=== PATIENT | male | born 1965 | race Caucasian/White ===

== ENCOUNTER 2018-02-11 08:40 | Inpatient (IN) | payer OTHER ==
[~2018-02-11 08:40] MED LIST: FAMOTIDINE 20 MG/NACL 50 ML IV ONE; MIDAZOLAM 2 MG/2 ML VIAL IVP ONE; MIDAZOLAM 2 MG/2 ML VIAL ONE; POVIDONE-IODINE 20 ML in SODIUM CL IRRIG SOLUTION 500 ML IRR ONE; PROPOFOL/EMULSION 500 MG/50 ML BOTTLE IV ONE; ROPIVACAINE 0.2% 80 MG, EPINEPHrine 0.2 MG, KETOROLAC TROMETHAMINE 30 MG in SYRINGE 0 ML IU ONE; TRANEXAMIC ACID 1,000 MG in NS 100 ML IV ONE; fentaNYL 100 MCG/2 ML INJ ONE
[2018-02-11] MEDS ORDERED: ACETAMINOPHEN 325 MG TAB PO ONE (08:57)
[2018-02-11] MEDS ORDERED: GABAPENTIN 300 MG CAP PO ONE (08:57)
[2018-02-11] MEDS ORDERED: ceFAZolin 2 GM/DEXTROSE 100 ML IV ONE (08:57)
[2018-02-11] MEDS ORDERED: DEXAMETHASONE 4 MG/ML VIAL IVP ONE (08:57)
[2018-02-11] MEDS ORDERED: ONDANSETRON 4 MG/2 ML VIAL IVP ONE (08:57)
[2018-02-11] MEDS ORDERED: FAMOTIDINE 20 MG TAB PO ONE (08:57)
[2018-02-11] MEDS ORDERED: LR 1,000 ML IV ONE (08:58)
[2018-02-11] MEDS ORDERED: ceFAZolin 1 GM/5 ML SYR ONE (09:32)
[2018-02-11] MEDS ORDERED: MIDAZOLAM 2 MG/2 ML VIAL ONE ×2 (10:21→12:09)
[2018-02-11 10:39] LABS: PLATELET COUNT 227 10^3/uL (150-400)
--- NOTE | 2018-02-11 11:47 | PDHPUP ---
History & Physical Update H&P update statement: This history and physical update is based on an assessment of the patient which was completed after admission or registration (within 24 hours), but prior to the surgery/procedure. H&P update: H&P reviewed & patient examined
[2018-02-11] MEDS ORDERED: LABETALOL HCL 5 MG/ML 20 ML MDV IVP PRN (13:27)
[2018-02-11] MEDS ORDERED: fentaNYL 100 MCG/2 ML INJ IVP PRN (13:27)
[2018-02-11] MEDS ORDERED: PROMETHAZINE HCL 25 MG/ML INJ IVP PRN ×2 (13:27→14:38)
[2018-02-11] MEDS ORDERED: MEPERIDINE 25 MG/0.5 ML AMP IVP PRN (13:27)
[2018-02-11] MEDS ORDERED: ALBUTEROL 3 ML DEYVIAL IH PRN (13:27)
[2018-02-11] MEDS ORDERED: HYDROmorphONE/DILAUDID 1 MG/ML INJ IVP PRN (13:27)
[2018-02-11] MEDS ORDERED: DIAZEPAM 5 MG/ML 1 ML SYR IVP PRN (13:27)
[2018-02-11] MEDS ORDERED: ONDANSETRON 4 MG/2 ML VIAL IVP PRN ×2 (13:27→14:38)
[2018-02-11] MEDS ORDERED: NALOXONE HCL 0.4 MG/ML INJ IVP PRN (13:27)
--- NOTE | 2018-02-11 13:27 | PDANEPAE ---
ANE Past Medical History - Cardiovascular History Hx Hypertension: No Hx Arrhythmias: No Hx Chest Pain: No Hx Coronary Artery / Peripheral Vascular Disease: No Hx CHF / Valvular Disease: No Hx Palpitations: No - Pulmonary History Hx COPD: No Hx Asthma/Reactive Airway Disease: No Hx Recent Upper Respiratory Infection: No Hx Oxygen in Use at Home: No Hx Sleep Apnea: No Sleep Apnea Screening Result - Last Documented: Negative - Neurologic History Hx Cerebrovascular Accident: No Hx Seizures: No Hx Dementia: No Neurologic History Comment: lumbar stenosis - Endocrine History Hx Diabetes: No - Renal History Hx Renal Disorders: No - Liver History Hx Hepatic Disorders: No - Neurological & Psychiatric Hx Hx Neurological and Psychiatric Disorders: No - Cancer History Hx Cancer: No - Congenital Disorder History Hx Congenital Disorders: No - GI History Hx Gastrointestinal Disorders: No - Other Health History Other Health History: none - Chronic Pain History Chronic Pain: Yes (right hip, lumbar back) - Surgical History Prior Surgeries: left shoulder x2. right shoulder x2. fasciotomy. shoulder scopes ANE Review of Systems Review of Systems: - Exercise capacity METS (RN): 4 METS ANE Patient History - Allergies Allergies/Adverse Reactions: No Known Allergies Allergy (Verified 01/31/18 12:59) - Home Medications Home Medications: Herbals/Supplements -Info Only 1 ea PO DAILY 01/24/18 [Last Taken 02/10/18] Magnesium Oxide [Magnesium Oxide 400 mg (*)] 400 mg PO DAILY 01/24/18 [Last Taken 02/10/18] - NPO status NPO Since - Liquids (Date): 02/11/18 NPO Since - Liquids (Time): 05:00 NPO Since - Solids (Date): 02/10/18 NPO Since - Solids (Time): 19:30 - Smoking Hx Smoking Status: Former smoker - Family Anes Hx Family Hx Anesthesia Complications: none ANE Labs/Vital Signs - Labs Result Diagrams: 02/11/18 10:10 - Vital Signs Blood Pressure: 124/85 Heart Rate: 53 Respiratory Rate: 16 O2 Sat (%): 92 Height: 182.88 cm Weight: 83.915 kg ANE Physical Exam - Airway Neck exam: FROM Mallampati Score: Class 2 Mouth exam: normal dental/mouth exam - Pulmonary Pulmonary: no respiratory distress, clear to auscultation - Cardiovascular Cardiovascular: regular rate and rhythym, no murmur, rub, or gallop - ASA Status ASA Status: II ANE Anesthesia Plan Anesthesia Plan: spinal
[2018-02-11] MEDS ORDERED: ONDANSETRON 4 MG/2 ML VIAL ONE (13:36)
[2018-02-11] MEDS ORDERED: DEXAMETHASONE 4 MG/ML VIAL ONE (13:36)
[2018-02-11] MEDS ORDERED: PROPOFOL/EMULSION 500 MG/50 ML BOTTLE IV ONE (13:36)
--- NOTE | 2018-02-11 14:23 | POSTOPPROG ---
Post Op Note Date of Operation: 02/11/18 Surgeon: Alvaro Austin Test Lead Application Testing: Perry Anesthesiologist: Dr. Lee Anesthesia: IV Sedation, Spinal Post-op Diagnosis: Right hip severe degenerative arthritis Procedure: Right hip [place] hip resurfacing arthroplasty Inf/Abcess present in the surg proc area at time of surgery?: No EBL: 100-500
[2018-02-11] MEDS ORDERED: METOCLOPRAMIDE 10 MG/2 ML VIAL IVP PRN (14:38)
[2018-02-11] MEDS ORDERED: PROMETHAZINE HCL 25 MG SUPPR PR PRN (14:38)
[2018-02-11] MEDS ORDERED: MAGNESIUM HYDROXIDE 30 ML UDCUP PO PRN (14:38)
[2018-02-11] MEDS ORDERED: POLYETHYLENE GLYCOL 3350 17 GM PKT PO PRN (14:38)
[2018-02-11] MEDS ORDERED: LACTULOSE 20 GM/30 ML UDCUP PO PRN (14:38)
[2018-02-11] MEDS ORDERED: NS 500 ML IV PRN (14:38)
[2018-02-11] MEDS ORDERED: oxyCODONE IR 5 MG TAB PO PRN (14:38)
[2018-02-11] MEDS ORDERED: traMADol 50 MG TAB PO PRN (14:38)
[2018-02-11] MEDS ORDERED: CYCLOBENZAPRINE 10 MG TAB PO PRN (14:38)
[2018-02-11] MEDS ORDERED: BISACODYL 10 MG SUPP PR PRN (14:38)
[2018-02-11] MEDS ORDERED: DIPHENOXYLATE/ATROPINE LOMOTIL 1 TAB PO PRN (14:38)
[2018-02-11] MEDS ORDERED: TEMAZEPAM 15 MG CAP PO PRN (14:38)
[2018-02-11] MEDS ORDERED: ONDANSETRON DISINTEGRATING 4 MG TAB PO PRN (14:38)
[2018-02-11] MEDS ORDERED: diphenhydrAMINE 25 MG CAP PO PRN (14:38)
[2018-02-11] MEDS ORDERED: LR 1,000 ML IV SCH (15:00)
--- NOTE | 2018-02-11 15:22 | GOP ---
DATE OF OPERATION: 02/11/2018 SURGEON: Alvaro Austin MD POLICY OFFICER: Marino Mcdermott [facility] Reid Nichols, JESSE ANESTHESIA: Combination of Marcaine, spinal, and IV sedation. ANESTHESIOLOGIST: Dr. Susan Lee. PREOPERATIVE DIAGNOSIS: Right hip advanced degenerative arthritis. POSTOPERATIVE DIAGNOSIS: Right hip advanced degenerative arthritis. PROCEDURE PERFORMED: Right hip Arnie hip resurfacing arthroplasty. FINDINGS: ESTIMATED BLOOD LOSS: About 400 cc. DESCRIPTION OF PROCEDURE: The patient was given 2 g of IV Ancef within 60 minutes of surgery. He also received IV tranexamic acid at a dose of 1000 mg. He was placed on the operating room table and given spinal anesthesia with Marcaine by Dr. Lee. He was placed supine and given IV sedation. A Lane catheter was not used. He wore a KESHAV stocking and SCD on the nonoperative leg. He was rolled to the left lateral decubitus position. An axillary roll was used, and all pressure points were carefully padded. The position was secured with the pegboard table attachment. I was careful to lock his pelvis in a rigid vertical position. His perineum was isolated with plastic adhesive drapes. His right hip and right lower extremity were prepped with ChloraPrep. They were draped free using sterile sheets, stockinette, and Ioban plastic adhesive drapes. A [employer] time-out was performed to verify the correct patient identity and the correct surgical side and site. The Stout time-out was also performed. I made a 6 to 7 inch straight oblique posterolateral hip skin incision. The subcutaneous tissues were sharply divided, and hemostasis was obtained using electrocautery. The fascia gilda was identified and split along the axis of its fibers. I curved posteriorly and proximally, and split the fascia of gluteus salvador and bluntly split the muscle fibers in line with their orientation. His sciatic nerve was identified and protected throughout the procedure. The Charnley self-retaining retractor was inserted. The external rotators and the posterior hip capsule were divided as separate layers at the base of the femoral neck, tagged, and reflected posteriorly. The gluteus salvador tendon was divided and tagged in order to improve exposure and release tension on the sciatic nerve. The hip was dislocated posteriorly. I used a sizing gauge to check the diameter of the neck and concluded that 50 mm was the proper head size. I performed a circumferential capsulotomy. I was able to retract the femoral head anteriorly and superiorly, and hold it out of place with appropriate retractors. The remnant of his damaged labrum was completely excised. His acetabulum was reamed sequentially up to 56 mm. I selected the Arnie monoblock porous-coated acetabular component with an outside diameter of 56 mm. The fit was not as tight as it should be. I went back and reamed with the 56 mm reamer as little deeper. The cup was re impacted and was very tight. I was careful to determine proper inclination and anteversion. I used the transverse acetabular ligament and other acetabular bony landmarks to help me properly orient the cup. Small posterior inferior osteophytes were removed with a rongeur. I was careful to leave a lip of bone and capsule extending beyond the anterior-inferior lip of the metal cup. I then returned to preparation of the femoral head. Using appropriate jigs and guides, I inserted a guide pin into the femoral head and neck. I was careful to position in such a way that there would be no notching of the neck. The large sterile metal goniometer was used to check the neck shaft angle. I reamed over the guide pin and inserted the reaming guide. I then used the cylindrical reamer down to the head and neck junction. This was followed by the flat reamer and the chamfer reamer. The head was sized for 50 mm. There was no impingement or damage to the neck. I drilled a small hole in the lesser trochanter and inserted a suction cannula to create negative pressure in the medullary canal. Small holes were drilled on the flat and chamfer surfaces of the prepared head for cement anchors. The head was thoroughly cleaned with the pulsating lavage and carefully dried. I used a CarboJet device to blow dry the cancellous surfaces. A single batch of Simplex cement with tobramycin was mixed. At about 50 seconds, I poured the cement into the head component, inserted it onto the femoral head and impacted it into place. Excess cement was removed before it hardened. The acetabulum was irrigated, cleaned, and inspected, and the hip was reduced. Stability and range of motion were checked. I placed my finger along the anterior aspect of the acetabular component and flexed the hip to 110 degrees. There was no anterior impingement. The suction cannula in the lesser trochanter was removed. The wound was thoroughly irrigated with a dilute Betadine solution. 40 cc of the joint anesthetic cocktail were injected into the capsule, the deep musculature, and the subcutaneous tissues along the skin edges. His sciatic nerve was reinspected and looked unharmed. The external rotators and the posterior hip capsule were repaired in separate layers with #2 FiberWire sutures through drill holes in the greater trochanter. This provided a strong posterior capsular and external rotator repair. The gluteus salvador tendon was repaired with two #2 [id number] FiberWire sutures. The fascia gilda was repaired first with 2 interrupted [id number] #2 FiberWire sutures , followed by a running #2 barbed Ethicon Stratafix PDO suture. The subcutaneous tissues were closed with a running 0 barbed Ethicon Stratafix MonoDerm suture. The skin was closed with a running 3-0 barbed Ethicon Stratafix MonoDerm subcuticular suture. The skin edges were reapproximated and sealed with Dermabond glue. The wound was covered with a large sterile Mepilex waterproof dressing. The sacrum and flexed dressing was also applied. He was awakened from anesthesia and rolled to the supine position on his [facility]. A long-leg KESHAV stocking was applied to the operative leg. An abduction pillow was placed between his knees. He was taken to PACU in satisfactory condition. There were no recognized intraoperative complications. COMPONENTS: I used a [employer] Arnie hip resurfacing system. The acetabular component was 56 mm in diameter and press-fit. The femoral head was 50 mm and cemented. COUNT: The sponge and needle count were correct on 2 occasions. Marino Mcdermott and Tan Nichols acted as surgical assistants. Their assistance was a medical necessity for safe completion of the procedure. /[id number]/MODL MTDD
--- NOTE | 2018-02-11 15:49 | POSTANESTH ---
Post Anesthetic Evaluation Respiratory Status: Normal, Stable Level of Consciousness/Mental Status: Mildly Sleepy, Arousable Pain Control: Adequate, Prn Tx Ordered Nausea/Vomiting Control: Adequate, Prn Tx Ordered Complications Possibly Related to Anesthesia: None Noted
[2018-02-11] MEDS ORDERED: ACETAMINOPHEN 325 MG TAB PO SCH (18:00)
[2018-02-11] MEDS ORDERED: KETOROLAC 15 MG/1 ML SDV IVP SCH (18:00)
[2018-02-11 19:18] VITALS: BP 112/83
[2018-02-11] MEDS ORDERED: ceFAZolin 2 GM/DEXTROSE 100 ML IV SCH (20:30)
[2018-02-11] MEDS ORDERED: SENNOSIDES/DOCUSATE SODIUM TAB PO SCH (21:00)
[2018-02-11] MEDS ORDERED: ASPIRIN 325 MG TAB PO SCH (21:00)
[2018-02-11] MEDS ORDERED: FAMOTIDINE 20 MG TAB PO SCH (21:00)
[2018-02-12] MEDS ORDERED: MAGNESIUM OXIDE 400 MG TAB PO SCH (09:00)
[2018-02-12] MEDS ORDERED: FERROUS SULFATE 140 MG TAB.ER PO SCH (09:00)
--- NOTE | 2018-02-12 23:55 | GDS ---
ADMISSION DIAGNOSIS: Severe right hip osteoarthritis. DISCHARGE DIAGNOSIS: Severe right hip osteoarthritis. OPERATIONS PERFORMED: Right hip resurfacing arthroplasty. POSTOPERATIVE COMPLICATIONS: None. CONDITION ON DISCHARGE: Improved. DESCRIPTION OF HOSPITAL COURSE: The patient was seen at the hospital on 02/11/2018. The same day, u nder a combination of Marcaine spinal and IV sedation, the patient underwent a right hip resurfacing arthroplasty. His admission CBC was normal. The same day, the patient was treated with multimodal DVT prophylaxis including KESHAV stockings, SCDs, and early mobilization. A Lane catheter was not used. The patient was able to void following surge ry on his own. The patient was ambulated by the nurses on the floor. By the time of discharge, he was independent w ith his crutches and voiding on his own. DISPOSITION: The patient is discharged to his home. He will go directly to outpatient physical aerodynamicist apy. He has a followup appointment in the office on March 06, 2018. If he has any problems before then, he will call the office. Full-strength aspirin x21 days. KESHAV stockings x1 week. Crutches an d weightbearing as tolerated. He has prescriptions for oxycodone and tramadol and Celebrex for pain control. Zofran for nausea. /[id number]/MODL
--- NOTE | 2018-02-13 09:38 | PDMN ---
Medical Necessity Medical necessity: [facility] [place]: S560 hip arthroplasty YOANDY jamison OP: R hip Arnie resurfacing arthroplasty
== END 2018-02-11 19:52 | disposition home or self-care (01) | DRG 470 ==
LOC: F3N 08:40 → OBSVTOIN 08:40 → F3N 16:28
PROVIDERS: ADMIT Orthopaedic Surgery; ATTEND Orthopaedic Surgery
PROC: 0SU90BZ Supplement Right Hip Joint with Resurfacing Device, Open Approach (ICD-10-PCS; principal; 2018-02-11 11:15)
DX: M16.11 Unilateral primary osteoarthritis, right hip (principal); M48.061 Spinal stenosis, lumbar region without neurogenic claudication; Z87.891 Personal history of nicotine dependence
CPT/HCPCS: C1713; G0378; J0171; J0690; J1100; J1885; J2250; J2405; J2704; J2795; J3010